=== PATIENT | female | born 1940 | race Caucasian/White ===

== ENCOUNTER → 2016-12-17 | Outpatient (CLI) | payer MEDICARE, BC ==
[~2016-12-17] MED LIST: ALMACONE 360 M360 ML PO; ARICEPT INJ; ATIVAN 0.50.5 MG/TAB PO; BACTRIM DS 8001 TAB PO; CALCIUM 600600 MG PO; CELEXA 20MG20 MG/TAB PO; CEPHALEXIN250 M1 PO; CEPHALEXIN500 M1 PO; ENSURE 237 ML237 ML PO; GENTLE LAXATIVE10 MG RC; IMODIUM 2MG CAPS2 MG PO; LISINOPRIL5 MG PO; MAG-OX 400400 MG/TAB PO; MILK OF MA400 MG/52 PO; NEUPOGEN300 MCG/0. SQ; NORCO 325 MG-7.1 TAB PO; OSCAL 500 TAB500 MG PO; OYSTER SHELL C500 MG PO; PERCOCET 325 MG1 TA2 PO; PRILOSEC 20MG20 MG PO; PRINIVIL2.5 MG PO; PROTONIX20 MG PO; ROCALTROL0.5 MCG PO; ROXICODONE 55 MG/TAB PO; SYNTHROID0.1 MG/TAB PO; TYLENOL 325MG325 MG PO; TYLENOL SU650 MG/SUP RC; ULTRAM 50MG TAB50 MG PO; VALIUM 2MG T2 MG/TAB PO; WELLBUTRIN 100100 MG PO; ZESTRIL 20MG TA20 MG PO; ZOFRAN ODT4 MG PO
== END ==
LOC: COL.RAD 10:47
DX: J98.4 Other disorders of lung (principal)

== ENCOUNTER → 2016-12-30 | Outpatient (CLI) | payer MEDICARE, BC ==
[~2016-12-30] VITALS: Ht 170.2 cm; Wt 59.5 kg
[2016-12-30 11:39] VITALS: BP 98/68; PULSE 81
[2016-12-30 12:30] VITALS: BP 131/72; PULSE 74
[2016-12-30 12:45] VITALS: BP 129/68; PULSE 67
== END ==
LOC: COL.RAD 11:10
DX: C88.4 Extranodal marginal zone B-cell lymphoma of mucosa-associated lymphoid tissue [MALT-lymphoma] (principal); G47.9 Sleep disorder, unspecified; Z79.899 Other long term (current) drug therapy
CPT/HCPCS: 13756

== ENCOUNTER 2017-04-25 09:07 | Emergency (ER) | payer MEDICARE, BC ==
[~2017-04-25] VITALS: Ht 167.6 cm; Wt 58.2 kg
[~2017-04-25 09:07] MED LIST changes: -CEPHALEXIN250 M1 PO; -CEPHALEXIN500 M1 PO
[2017-04-25 09:13] VITALS: TEMP 98.3
[2017-04-25] MEDS ORDERED: CEPHALEXIN250 M1 PO (09:43)
[2017-04-25 09:57] LABS: MEAN CELL VOLUME 90 fl (80.0-100.0); MEAN CORPUSCULAR HGB CONC 30 g/dl (33.0-37.0); PLATELET COUNT 283 K/mm3 (130-400); RED BLOOD COUNT 3.38 M/mm3 (4.10-5.30); REDCELL DISTRIBUTION WIDTH-CV 23.9 % (11.5-14.5); WHITE BLOOD COUNT 9.3 K/mm3 (4.8-10.8)
[2017-04-25 10:07] LABS: INR 1.2 (0.8-3.0); PROTHROMBIN TIME 13.3 SECONDS (9.7-12.8)
[2017-04-25 10:08] LABS: HEMATOCRIT 30.4 % (37.0-47.0); HEMOGLOBIN 9.2 g/dl (12.5-16.0); MEAN CORPUSCULAR HEMOGLOBIN 27 pg (27.0-31.0)
[2017-04-25 10:10] LABS: PARTIAL THROMBOPLASTIN TIME 26.3 SECONDS (26.0-37.0)
[2017-04-25 10:14] LABS: ADJUSTED CALCIUM 9.8 mg/dL (8.4-10.2); ALBUMIN 4.5 gm/dL (3.5-5.0); BILIRUBIN,TOTAL 0.9 mg/dL (0.0-1.0); CALCIUM 10.2 mg/dL (8.4-10.2); CREATININE, serum 0.82 mg/dL (0.52-1.25); POTASSIUM 3.5 mmol/L (3.4-5.0); TOTAL PROTEIN 7.2 gm/dL (6.4-8.2)
[2017-04-25 10:57] LABS: BAND 17 % (0-10); METAMYELOCYTE 1 % (0-0); MYELOCYTE 7 % (0-0); NEUTROPHILS 36 % (42.0-75.2); TOTAL CELLS COUNTED 100
[2017-04-25 11:00] LABS: ANISOCYTOSIS 3+; HYPOCHROMIA 2+
[2017-04-25 11:02] LABS: ADD PATHOLOGY DIFF REVIEW YES
[2017-04-25 11:03] LABS: PLATELET ESTIMATE NORMAL (NORMAL)
[2017-04-25] MEDS ORDERED: CEPHALEXIN500 M1 PO (11:17)
[2017-04-25 12:16] VITALS: BP 121/57; PULSE 55
[2017-04-28 08:44] LABS: PATHOLOGY DIFF REVIEW OK +
== END 2017-04-25 12:16 | disposition home or self-care (01) ==
LOC: COL.ER 09:07
PROVIDERS: Emergency Medicine
DX: S09.90XA Unspecified injury of head, initial encounter (principal); S01.81XA Laceration without foreign body of other part of head, initial encounter; E03.9 Hypothyroidism, unspecified; I10 Essential (primary) hypertension; D46.9 Myelodysplastic syndrome, unspecified; W22.8XXA Striking against or struck by other objects, initial encounter; Y92.009 Unspecified place in unspecified non-institutional (private) residence as the place of occurrence of the external cause
CPT/HCPCS: J0690

== ENCOUNTER → 2017-05-02 | Emergency (ER) | payer MEDICARE, BC ==
[~2017-05-02] MED LIST changes: +CEPHALEXIN250 M1 PO; +CEPHALEXIN500 M1 PO
[2017-05-02 08:52] VITALS: BP 158/89; PULSE 69; TEMP 98.3
== END ==
LOC: COL.ER 08:47
DX: Z48.02 Encounter for removal of sutures (principal)

== ENCOUNTER 2017-06-20 06:20 | Emergency (ER) | payer MEDICARE, BC ==
[~2017-06-20] VITALS: Ht 167.6 cm; Wt 56.8 kg
[2017-06-20 06:22] VITALS: TEMP 98.5
[2017-06-20] MEDS ORDERED: CEPHALEXIN500 M1 PO (08:43)
[2017-06-20 09:01] VITALS: BP 121/67; PULSE 61
== END 2017-06-20 09:00 | disposition home or self-care (01) ==
LOC: COL.ER 06:20
DX: S01.82XA Laceration with foreign body of other part of head, initial encounter (principal); S51.822A Laceration with foreign body of left forearm, initial encounter; I10 Essential (primary) hypertension; D46.9 Myelodysplastic syndrome, unspecified; C85.90 Non-Hodgkin lymphoma, unspecified, unspecified site; Z90.710 Acquired absence of both cervix and uterus; Z90.49 Acquired absence of other specified parts of digestive tract; Z98.890 Other specified postprocedural states; W01.198A Fall on same level from slipping, tripping and stumbling with subsequent striking against other object, initial encounter; Y92.008 Other place in unspecified non-institutional (private) residence as the place of occurrence of the external cause

== ENCOUNTER 2019-03-07 20:08 | Inpatient (IN) | payer MEDICARE, BC ==
[~2019-03-07] VITALS: Ht 160 cm; Wt 62.2 kg
[2019-03-07 21:38] LABS: MEAN CELL VOLUME 91 fl (80.0-100.0); MEAN CORPUSCULAR HGB CONC 30 g/dl (33.0-37.0); PLATELET COUNT 140 K/mm3 (130-400)
[2019-03-07 21:50] LABS: ALBUMIN 3.9 gm/dL (3.5-5.0); BILIRUBIN,TOTAL 1.9 mg/dL (0.0-1.0); C-REACTIVE PROTEIN 5.6 mg/dL (0.0-0.9); CALCIUM 9.4 mg/dL (8.4-10.2); CREATININE, serum 0.84 (0.52-1.25); POTASSIUM 3.8 mmol/L (3.4-5.0); TOTAL PROTEIN 6.9 gm/dL (6.4-8.2)
[2019-03-07 21:57] LABS: COLLECTION METHOD CLEAN CATCH
[2019-03-07 22:25] LABS: MUCOUS Present /lpf; PH 5 (5-8); URINE APPEARANCE Cloudy; URINE BACTERIA Moderate /hpf; URINE BILIRUBIN Negative (NEGATIVE); URINE BLOOD 1+ (NEGATIVE); URINE GLUCOSE Negative (NEGATIVE); URINE KETONE Negative (NEGATIVE); URINE LEUKOCYTE ESTERASE Trace (NEGATIVE); URINE NITRATE Negative (NEGATIVE); URINE PROTEIN(semi-quant) 1+ (NEGATIVE)
[2019-03-07 22:27] LABS: URINE COLOR Amber
[2019-03-07 22:50] LABS: HEMATOCRIT 30.8 % (37.0-47.0); HEMOGLOBIN 9.3 g/dl (12.5-16.0); MEAN CORPUSCULAR HEMOGLOBIN 27 pg (27.0-31.0)
[2019-03-07 22:54] LABS: BAND 1 % (0-10); HYPOCHROMIA 2+; LYMPHOCYTE 9 % (20.0-51.0); NEUTROPHILS 69 % (42.0-75.2)
[2019-03-07 22:55] LABS: ANISOCYTOSIS 2+; MICROCYTOSIS 2+; STOMATOCYTE 2+
[2019-03-07 22:56] LABS: PLATELET ESTIMATE NORMAL (NORMAL)
--- NOTE | 2019-03-07 23:40 | NUR ---
Pt arrived to room 306, tranfsered per ED staff. Pt awake, a&o, cooperative c cares. Pt oriented to room, unit policies et current POC. Questions invited et answered, pt verbalizes understanding. Denies needs at this time. Call light in reach. Will continue c admit process.
[2019-03-08] VITALS (8 sets, daily range): BP systolic 94–114; BP diastolic 31–68; PULSE 61–96; TEMP 97.4–98.7
[2019-03-08 04:53] LABS: INR 1.4 (0.8-3.0); PROTHROMBIN TIME 16.9 SECONDS (9.7-12.8)
[2019-03-08 06:11] LABS: MEAN CELL VOLUME 91 fl (80.0-100.0); MEAN CORPUSCULAR HGB CONC 30 g/dl (33.0-37.0); PLATELET COUNT 131 K/mm3 (130-400); RED BLOOD COUNT 3.35 M/mm3 (4.10-5.30); REDCELL DISTRIBUTION WIDTH-CV 24.1 % (11.5-14.5)
[2019-03-08 06:15] LABS: ANION GAP 12 mmol/L (7-16); BLOOD UREA NITROGEN 22 mg/dL (7-17); CALCIUM 8.9 mg/dL (8.4-10.2); CARBON DIOXIDE 26 mmol/L (22-30); CHLORIDE 100 mmol/L (98-107); CREATININE, serum 0.73 (0.52-1.25); GLUCOSE 105 mg/dL (74-106); POTASSIUM 3.7 mmol/L (3.4-5.0); SODIUM 138 mmol/L (137-145)
[2019-03-08 06:29] LABS: HEMATOCRIT 30.6 % (37.0-47.0); HEMOGLOBIN 9.1 g/dl (12.5-16.0); MEAN CORPUSCULAR HEMOGLOBIN 27 pg (27.0-31.0); TROPONIN-I < 0.012 ng/mL (0.000-0.035)
[2019-03-08 06:45] LABS: TSH w REFLEX 0.067 uIU/mL (0.465-4.680)
[2019-03-08 07:59] LABS: BAND 4 % (0-10); LYMPHOCYTE 25 % (20.0-51.0); NEUTROPHILS 50 % (42.0-75.2); PLATELET ESTIMATE NORMAL (NORMAL)
--- NOTE | 2019-03-08 08:30 | NUR ---
Pt sitting up in bed with breakfast tray in front of her. Pt is very drowsy, falling asleep while eating. Awakens to verbal stimuli. Denies any pain or nausea or vommiting. Rectal ducolax suppository given. Completed morning assessment. Breath sounds clear with some coarse sounds auscultated. Denies any other needs at this time. Call light in reach.
[2019-03-08] MEDS ORDERED: SLOW-MAG 6464 MG/TAB PO (11:02)
[2019-03-08] MEDS ORDERED: CALCIUM CARBON650 M2 (11:04)
--- NOTE | 2019-03-08 15:15 | NUR ---
Pt resting in bed, at bedside. Pt was able to eat small amount of lunch, had contiued to stay very tired. She awakens to touch, but than falls back to sleep. Will continue to monitor. Call light in reach.
--- NOTE | 2019-03-08 16:00 | NUR ---
KETURAH met with the patient and her Warner. The pt was sleeping, Warner answered the questions. The pt lives [place] with Warner. The pt uses a walker daily and uses a shower chair and if assistance is needed, Warner helps. The pt's PCP is Dr. Mensah and receives medications from [facility] with no difficulties. The pt does not have advanced directives in the EMR. Warner will transport the patient home upon discharge. There are no addtional needs at this time.
--- NOTE | 2019-03-08 17:40 | NUR ---
Pt very tired, hard to wake up. Pt has not used the restroom since this AM. Tried to get pt up to the bathroom, pt denied wanting to get up and immediatly went back to sleep. Will contiue to monitor.
--- NOTE | 2019-03-08 18:28 | NUR ---
EARLIER PT [facility] AND WAS HARD TO AROUSE SPOKE WITH BISHOP KNOX ABOUT PT NOT URINATING AND WAS TOLD TO DO BLADDER SCAN AND IF FULL INSERT CATHETER. WENT INTO PT ROOM, PT WOKE UP AND WAS ABLE TO GET TO TOILET TO URINATE. FORGOT TO PUT HAT IN AND WILL STILL NEED ANOTHER URINE SAMPLE. PT VOIDED YELLOW CLEAR URINE. WILL CONTIUE TO MONITOR.
--- NOTE | 2019-03-08 18:43 | NUR ---
Pt up in room, ready for dinner now. Ordered her food. Gave report to Cleo LANDIS.
--- NOTE | 2019-03-08 20:30 | NUR ---
Shift assessment complete. Pt resting in bed, awake, a&o, cooperative c cares. Pt denies pain or other c/o at this time. INT patent. Pt denies needs. Call light in reach, bed alarm on. Will monitor.
[2019-03-08 23:33] LABS: COLLECTION METHOD CLEAN CATCH
[2019-03-08 23:41] LABS: MUCOUS Present /lpf; PH 5 (5-8); URINE APPEARANCE Clear; URINE BACTERIA Rare /hpf; URINE BILIRUBIN Negative (NEGATIVE); URINE BLOOD Negative (NEGATIVE); URINE COLOR Yellow; URINE GLUCOSE Negative (NEGATIVE); URINE KETONE Negative (NEGATIVE); URINE LEUKOCYTE ESTERASE Trace (NEGATIVE); URINE NITRATE Negative (NEGATIVE); URINE PROTEIN(semi-quant) Negative (NEGATIVE); URINE RBC 0-2 /hpf; URINE UROBILINOGEN Negative (NEGATIVE)
--- NOTE | 2019-03-09 05:20 | NUR ---
Pt resting in bed, condition unchanged. Pt has rested well this shift c few needs. No needs at this time. Call light in reach, bed alarm on.
[2019-03-09 06:13] LABS: MEAN CELL VOLUME 93 fl (80.0-100.0); MEAN CORPUSCULAR HGB CONC 29 g/dl (33.0-37.0); RED BLOOD COUNT 3.03 M/mm3 (4.10-5.30); REDCELL DISTRIBUTION WIDTH-CV 24.6 % (11.5-14.5)
[2019-03-09 06:28] LABS: CALCIUM 7.7 mg/dL (8.4-10.2); CREATININE, serum 0.74 (0.52-1.25); POTASSIUM 3.3 mmol/L (3.4-5.0)
[2019-03-09 06:49] LABS: HEMATOCRIT 28.3 % (37.0-47.0); HEMOGLOBIN 8.2 g/dl (12.5-16.0); MEAN CORPUSCULAR HEMOGLOBIN 27 pg (27.0-31.0)
[2019-03-09 07:06] VITALS: BP 100/45; PULSE 79; TEMP 98.6
--- NOTE | 2019-03-09 08:15 | NUR ---
Pt is drowswy, awakens to verbal stimuli. Pt is AAOx3. Denies any pain at this time. Pt has mepelex on her bottom for a blanchable red area. Completed morning assessment. Breath sounds clear, denies any shortness of breath. Pt states she gets confused at what day it is at times, alert at this time though. Breakfast at bedside, pt denies needing any help. Call light in reach.
[2019-03-09 10:26] LABS: BAND 16 % (0-10); BASOPHIL 1 % (0-2); LYMPHOCYTE 36 % (20.0-51.0); METAMYELOCYTE 3 % (0-0); NEUTROPHILS 14 % (42.0-75.2)
[2019-03-09 10:29] LABS: PLATELET ESTIMATE NORMAL (NORMAL); SCHISTOCYTES 1+
[2019-03-09 10:31] LABS: PLATELET COUNT 124 K/mm3 (130-400)
--- NOTE | 2019-03-09 10:33 | NUR ---
Pt in bed alert and oriented, at bedside. had new medication information, updated med rec and will follow up with Dr. Hester. Pt denies any other needs.
[2019-03-09] MEDS ORDERED: REMERON SOLTAB30 MG PO (10:34)
[2019-03-09 11:34] VITALS: BP 97/46; PULSE 75; TEMP 98.1
[2019-03-09 15:13] VITALS: BP 105/42; PULSE 87; TEMP 98.8
--- NOTE | 2019-03-09 15:49 | NUR ---
SW met with the patient to review discharge plan and to discuss home health services. The patient reports that she is not interested in any home health at this time and still plans to return home with her upon discharge. No other identified needs at this time, but SW to continue to follow.
--- NOTE | 2019-03-09 18:16 | NUR ---
Pt lying in bed, denies any pain or shortness of breath. Dinner tray ordered. Denies any other needs. Call light in reach.
--- NOTE | 2019-03-09 19:24 | NUR ---
Pt eating dinner, hand off report given to Cleo LANDIS.
--- NOTE | 2019-03-09 20:10 | NUR ---
Shift assessment complete. Pt resting in bed, sleepy but easy to wake, a&o, cooperative c cares. Pt denies pain or other c/o. IV patent. Tele in place. Pt denies needs. Call light in reach, bed alarm on. Will monitor.
[2019-03-09 20:44] VITALS: BP 109/41; BP 92/54; PULSE 84; TEMP 98.8
[2019-03-09 23:36] VITALS: BP 100/43; PULSE 81; TEMP 99.1
[2019-03-10 04:22] VITALS: BP 87/41; PULSE 79; TEMP 98
--- NOTE | 2019-03-10 05:31 | NUR ---
Pt resting in bed, condition unchanged. Pt has rested well this shift c very few needs. No needs at this time. Call light in reach, bed alarm on.
[2019-03-10 07:15] VITALS: BP 117/46; PULSE 72; TEMP 98.5
[2019-03-10 07:25] LABS: CALCIUM 8.3 mg/dL (8.4-10.2); CREATININE, serum 0.57 (0.52-1.25); MAGNESIUM 1.2 mg/dL (1.6-2.3); POTASSIUM 3.7 mmol/L (3.4-5.0)
--- NOTE | 2019-03-10 08:30 | NUR ---
Pt is awake and A/Ox4, sitting up in bed. She denies pain or discomfort. IVF are infusing into right hand without difficulty. Pt eager to go home later today. Updated on plan of care, expressed understanding. Denies any other needs.
[2019-03-10] MEDS ORDERED: OMNICEF 300MG300 MG PO (09:00)
[2019-03-10 09:15] LABS: MEAN CELL VOLUME 91 fl (80.0-100.0); MEAN CORPUSCULAR HGB CONC 30 g/dl (33.0-37.0); REDCELL DISTRIBUTION WIDTH-CV 24.5 % (11.5-14.5)
[2019-03-10 09:27] LABS: HEMATOCRIT 27.4 % (37.0-47.0); HEMOGLOBIN 8.1 g/dl (12.5-16.0); MEAN CORPUSCULAR HEMOGLOBIN 27 pg (27.0-31.0)
[2019-03-10 09:28] LABS: PLATELET COUNT 144 K/mm3 (130-400)
--- NOTE | 2019-03-10 11:16 | NUR ---
The patient is to discharge back home with her today, 03/10. SW presented and explained the IM form to the patient and patient's . The patient's verbalized understanding, signed, and he was provided a copy. No additional needs at this time.
[2019-03-10 11:21] VITALS: BP 109/46; PULSE 76; TEMP 98
--- NOTE | 2019-03-10 14:00 | NUR ---
Pt was discharged home from hospital. All discharge instructions and paperwork was reviewed with pt and , both expressed understanding and questions answered. Medications reviewed. Saline lock removed, cathetet tip intact. Pt was escorted out of facility by staff.
== END 2019-03-10 14:30 | disposition home or self-care (01) | DRG 871 ==
LOC: COL.ER 20:08 → EDBEDREQSVC 22:48 → EDBEDREQ 22:48 → EDBEDREQTM 22:48 → EDBEDREQ 23:08 → MEDICAL 23:20
PROVIDERS: Hospitalist; Internal Medicine; Nurse Practitioner Family; Physician Assistant; ADMIT Emergency Medicine
DX: A41.9 Sepsis, unspecified organism (principal); J18.1 Lobar pneumonia, unspecified organism; C85.99 Non-Hodgkin lymphoma, unspecified, extranodal and solid organ sites; N39.0 Urinary tract infection, site not specified; K21.9 Gastro-esophageal reflux disease without esophagitis; E89.0 Postprocedural hypothyroidism; E87.6 Hypokalemia; Z66 Do not resuscitate; F41.9 Anxiety disorder, unspecified; I10 Essential (primary) hypertension; F32.9 Major depressive disorder, single episode, unspecified; K44.9 Diaphragmatic hernia without obstruction or gangrene; E83.51 Hypocalcemia; R33.9 Retention of urine, unspecified; R53.81 Other malaise; Z96.611 Presence of right artificial shoulder joint; Z90.710 Acquired absence of both cervix and uterus
CPT/HCPCS: 99222-AI; 99231-AI; 99239; A4216; J0696; J1650; J2405; J2550; J3475; J7030; Q9967

== ENCOUNTER 2020-02-14 07:53 | Outpatient (CLI) | payer MEDICARE, BC ==
[~2020-02-14] VITALS: Ht 165.1 cm; Wt 51.4 kg
[~2020-02-14 07:53] MED LIST changes: +CALCIUM CARBON650 M2; +OMNICEF 300MG300 MG PO; +PRIL40 PO; +REMERON SOLTAB30 MG PO; +SYNTHROID0.075 MG/T PO
[2020-02-14] MEDS ORDERED: ATIVAN 0.50.5 MG/TAB PO (08:34)
[2020-02-14 09:07] VITALS: BP 138/68; PULSE 66; TEMP 97.5
[2020-02-14 11:20] VITALS: BP 93/48; PULSE 60; TEMP 98.4
--- NOTE | 2020-02-14 11:20 | NUR ---
Patient arrives back to [facility] drowsy, denies pain or nausea. Patient monitor applied, vitals stable. Bandaid/dressing on right lower back clean, dry, intact. Patient's spouse at bedside. Patient resting comfortably.
[2020-02-14 11:23] LABS: MEAN CELL VOLUME 94 fl (80.0-100.0); MEAN CORPUSCULAR HGB CONC 31 g/dl (33.0-37.0); MEAN PLATELET VOLUME 13.4 fl (7.4-10.4); PLATELET COUNT 185 K/mm3 (130-400); RED BLOOD COUNT 3.19 M/mm3 (4.10-5.30); REDCELL DISTRIBUTION WIDTH-CV 22.5 % (11.5-14.5)
[2020-02-14 11:30] LABS: HEMATOCRIT 29.9 % (37.0-47.0); HEMOGLOBIN 9.3 g/dl (12.5-16.0); MEAN CORPUSCULAR HEMOGLOBIN 29 pg (27.0-31.0)
[2020-02-14 11:35] VITALS: BP 91/49; PULSE 60
--- NOTE | 2020-02-14 11:35 | NUR ---
Patient alert and more awake at this time. Patient given water and muffin. Vitals stable.
[2020-02-14 11:50] VITALS: BP 90/56; PULSE 70
--- NOTE | 2020-02-14 12:00 | NUR ---
Patient tolerates water and muffin without any nausea or vomiting. Patient denies pain, dressing clean/dry/intact, vitals stable.
[2020-02-14 12:05] VITALS: BP 106/55; PULSE 63
[2020-02-14 12:24] LABS: BAND 8 % (0-10); EOSINOPHIL 3 % (0-4); LYMPHOCYTE 61 % (20.0-51.0); NEUTROPHILS 6 % (42.0-75.2); PLATELET ESTIMATE NORMAL (NORMAL)
[2020-02-14 12:25] LABS: ANISOCYTOSIS 1+; HYPOCHROMIA 1+
--- NOTE | 2020-02-14 12:25 | NUR ---
Dismissal instructions gone over with patient's . He voices understanding and all questions answered.
--- NOTE | 2020-02-14 12:30 | NUR ---
Patient discharged to private vehicle at patient enterance via wheelchair without any complications. Patient and patient's spouse leave thanking staff for services.
== END 2020-02-14 12:30 | disposition home or self-care (01) ==
LOC: SDCO 07:53
PROVIDERS: Pathology Anatomic Pathology & Clinical Pathology
DX: D46.9 Myelodysplastic syndrome, unspecified (principal); C88.4 Extranodal marginal zone B-cell lymphoma of mucosa-associated lymphoid tissue [MALT-lymphoma]; I10 Essential (primary) hypertension; K21.9 Gastro-esophageal reflux disease without esophagitis; E03.9 Hypothyroidism, unspecified; D53.9 Nutritional anemia, unspecified; Z90.49 Acquired absence of other specified parts of digestive tract; Z96.611 Presence of right artificial shoulder joint; Z96.642 Presence of left artificial hip joint; Z92.21 Personal history of antineoplastic chemotherapy; Z88.6 Allergy status to analgesic agent
CPT/HCPCS: J2704; J3010; J7120

== ENCOUNTER 2021-03-15 09:07 | Observation (INO) | payer MEDICARE, BC ==
[~2021-03-15] VITALS: Ht 165.1 cm; Wt 48.5 kg
[2021-03-15] VITALS (21 sets, daily range): BP systolic 93–157; BP diastolic 53–104; PULSE 58–80; TEMP 97.6–98.7
--- NOTE | 2021-03-15 15:50 | NUR ---
REPORT CALLED TO SABIHA KHAN. DRESSING IS CDI TO LEFT UPPER CHEST. DR CHRISTIANSON REMOVED MOST OF THE AIR PRIOR TO DRESSING SITE. PT ABLE TO BERATH BETTER PER HER REPORT.
--- NOTE | 2021-03-15 16:26 | NUR ---
PT TO ROOM 325 PER CART. PT IS A/O X3. VOIDED ON ARRIVAL. RETURNED TO BED WITH STAND BY ASSIST. VSS, CHEST TUBE PLACED PER RADIOLOGY. LUNGS DIMINISHED, PT APPEARS FRAIL. HISTORY OF LYMPHOMA BEING MANAGED BY DR. HINOJOSA. AT BEDSIDE THEN WENT HOME.
[2021-03-15 18:32] LABS: HEMOGLOBIN 10.4 g/dl (12.5-16.0); MEAN CELL VOLUME 91 fl (80.0-100.0); MEAN CORPUSCULAR HEMOGLOBIN 26 pg (27.0-31.0); MEAN CORPUSCULAR HGB CONC 29 g/dl (33.0-37.0); PLATELET COUNT 170 K/mm3 (130-400); RED BLOOD COUNT 3.95 M/mm3 (4.10-5.30); REDCELL DISTRIBUTION WIDTH-CV 25.2 % (11.5-14.5)
[2021-03-15 18:35] LABS: CALCIUM 9.2 mg/dL (8.4-10.2); CREATININE, serum 0.66 (0.52-1.25); POTASSIUM 4.1 mmol/L (3.4-5.0)
[2021-03-15 18:43] LABS: HEMATOCRIT 36.1 % (37.0-47.0)
--- NOTE | 2021-03-15 19:44 | NUR ---
PT COMPLAINS OF LEFT CHEST PAIN FROM [place] VALVE INSERTION SITE. TYLENOL 650MG PO GIVEN WELL SCHEDULED MELATONIN FOR SLEEP AT THIS TIME. CHEST TUBE TO 20CM SX.
[2021-03-15 20:34] LABS: BAND 4 % (0-10); LYMPHOCYTE 54 % (20.0-51.0); NEUTROPHILS 25 % (42.0-75.2)
[2021-03-15 20:35] LABS: HYPOCHROMIA 3+; PLATELET ESTIMATE NORMAL (NORMAL)
[2021-03-15 20:36] LABS: ANISOCYTOSIS 3+; SCHISTOCYTES 1+
[2021-03-15 20:38] LABS: TARGET CELLS 1+
[2021-03-15 20:41] LABS: POIKILOCYTOSIS 2+
--- NOTE | 2021-03-15 22:00 | NUR ---
NOTIFIED ML CARRASCO OF PTS CONTINUED PAIN TO CT INSERTION SITE. NEW ORDER FOR DILAUDID GIVEN.
--- NOTE | 2021-03-15 22:15 | NUR ---
IV SITE TO LEFT AC LEAKING. NEW SITE STARTED TO LEFT FOREARM WITH #22 INSYTE. DILAUDID 0.25MG IVP GIVEN AFTER NEW SITE PLACED.
--- NOTE | 2021-03-16 | NUR ---
PT REPORTS GOOD PAIN RELIEF WITH DILAUDID.
[2021-03-16 00:08] VITALS: BP 124/63; PULSE 72; TEMP 98.7
--- NOTE | 2021-03-16 02:13 | NUR ---
PT MRSA NASAL SCREEN NEGATIVE, REMOVED FROM PRECAUTIONS.
[2021-03-16 02:55] VITALS: BP 150/77; PULSE 88; TEMP 97.5
--- NOTE | 2021-03-16 05:00 | NUR ---
PT HAS BEEN UP TO VOID, REPORTS NOT SURE WHAT SHE NEEDS. ATIVAN 0.5MG PO NOW WELL TYLENOL 650MG PO.
[2021-03-16 08:01] VITALS: BP 116/62; PULSE 80; TEMP 97.6
[2021-03-16 08:05] LABS: PATHOLOGY DIFF REVIEW OK +
--- NOTE | 2021-03-16 09:30 | NUR ---
Patient alert and oriented, answers questions appropriately. See assessment. Chest tube to left chest wall with dressing CDI. Chest tube canister to 20mmg suction, bubbling noted in canister, no drainage noted. Chest tube education reviewed with patient. Lungs CTA, respers even and unlabored. No c/o at this time.
[2021-03-16 11:11] VITALS: BP 98/58; PULSE 76; TEMP 98.3
--- NOTE | 2021-03-16 11:47 | NUR ---
Sw met the pt and . The stated her preference is to return home once medically stable. The pt lives at home with her , Warner ( ). The pt needs help with getting in/out of the bathtub and getting dressed. The pt uses walker at home and wheelchair in public. The pt pcp is Oscar Malcolm and get her medications from [facility]. The pt has a DPAO-[facility]. The pt has used HH services 4 years ago. No other needs stated at this time. Sw to follow up as needed. Sw followed in rounds. D/C: Home with on 03/16 or 03/17
--- NOTE | 2021-03-16 12:35 | NUR ---
CT clamped at 1130 per Drs order.
--- NOTE | 2021-03-16 16:03 | NUR ---
CT removed per Drs order.
[2021-03-16 16:05] VITALS: BP 118/70; PULSE 82; TEMP 98.3
--- NOTE | 2021-03-16 17:04 | NUR ---
Discharge instructions reviewed with patient and spouse, verbalized understanding. Discharged via wheelchair to auto/home with spouse at 1704.
== END 2021-03-16 17:04 | disposition home or self-care (01) ==
LOC: COL.RAD 09:07 → SURG 16:33
DX: R91.1 Solitary pulmonary nodule (principal); J95.811 Postprocedural pneumothorax; C85.12 Unspecified B-cell lymphoma, intrathoracic lymph nodes; C85.90 Non-Hodgkin lymphoma, unspecified, unspecified site; D46.9 Myelodysplastic syndrome, unspecified; D63.0 Anemia in neoplastic disease; I10 Essential (primary) hypertension; E89.0 Postprocedural hypothyroidism; K21.9 Gastro-esophageal reflux disease without esophagitis; Z79.890 Hormone replacement therapy; Z79.899 Other long term (current) drug therapy; Z85.828 Personal history of other malignant neoplasm of skin; Z80.3 Family history of malignant neoplasm of breast; Z80.0 Family history of malignant neoplasm of digestive organs; Z92.21 Personal history of antineoplastic chemotherapy
CPT/HCPCS: 99239; A7041; G0378; J1170; J1650

== ENCOUNTER 2021-05-09 07:47 | Outpatient (CLI) | payer MEDICARE, BC ==
[2021-05-09 08:25] VITALS: BP 108/52; PULSE 72; TEMP 97.7
[2021-05-09 10:25] VITALS: BP 103/58; PULSE 72; TEMP 97.9
[2021-05-09 10:40] VITALS: BP 99/53; PULSE 71; TEMP 98
[2021-05-09 11:10] VITALS: BP 97/55; PULSE 72; TEMP 98
[2021-05-09 11:56] VITALS: BP 105/47; PULSE 71; TEMP 98
--- NOTE | 2021-05-09 12:30 | NUR ---
Pt has tolerated her blood transfusion with no problem. no adverse or allergic reactions noted. Pt has been assisted to br via wheelchair x 2, she is able to stand and transfer with minimal assist. IV is dc'd with cath intact, dressing applied. Pt is escorted to exit via wheelchair.
== END 2021-05-09 18:43 | disposition home or self-care (01) ==
LOC: EUO 07:47
DX: D46.A Refractory cytopenia with multilineage dysplasia (principal); C88.4 Extranodal marginal zone B-cell lymphoma of mucosa-associated lymphoid tissue [MALT-lymphoma]
CPT/HCPCS: J7050; P9040